=== PATIENT | female | born 1990 | race Caucasian/White ===

== ENCOUNTER 2016-06-30 16:43 | Emergency (ER) | payer BC ==
[~2016-06-30] VITALS: Ht 162.6 cm; Wt 65.8 kg
[~2016-06-30 16:43] MED LIST: BIRTH CONTROL; SYNTHROID; TOPAMAX 100 MG100 MG NG
[2016-06-30] MEDS ORDERED: ALDACTONE50 MG PO (17:19)
[2016-06-30] MEDS ORDERED: LEVOTHYROXINE0.05 MG PO (17:19)
[2016-06-30] MEDS ORDERED: DOXYCYCLINE HY100 M3 PO (17:20)
[2016-06-30 18:04] VITALS: BP 127/77
== END 2016-06-30 18:07 | disposition home or self-care (01) ==
LOC: ER 16:43
DX: I73.00 Raynaud's syndrome without gangrene (principal); E16.2 Hypoglycemia, unspecified; Z88.5 Allergy status to narcotic agent; Z91.040 Latex allergy status